=== PATIENT | male | born 1980 | race Native Hawaiian/Other Pacific Islander ===

== ENCOUNTER 2017-01-29 14:02 | Outpatient (CLI) | payer BC | END 2017-01-29 16:00 | disposition home or self-care (01) | LOC: LABW 14:02 | DX: K21.9 Gastro-esophageal reflux disease without esophagitis (principal) | CPT/HCPCS: 36415; 86677 ==

== ENCOUNTER 2020-07-17 09:41 | Outpatient (CLI) | payer OTHER | END 2020-07-17 21:31 | disposition home or self-care (01) | LOC: RAD 09:41 | PROVIDERS: ATTEND Nurse Practitioner Family | DX: M25.521 Pain in right elbow (principal) ==

== ENCOUNTER 2021-04-29 16:02 | Emergency (ER) | payer OTHER ==
[~2021-04-29] VITALS: Ht 190.5 cm; Wt 103.0 kg
[2021-04-29 16:06] VITALS: BP 139/83; TEMP 97.7
== END 2021-04-29 16:56 | disposition home or self-care (01) ==
LOC: ED 16:02
DX: T63.391A Toxic effect of venom of other spider, accidental (unintentional), initial encounter (principal); R20.2 Paresthesia of skin; X58.XXXA Exposure to other specified factors, initial encounter; Y92.098 Other place in other non-institutional residence as the place of occurrence of the external cause
CPT/HCPCS: 96372; 99283; J0696; J1100

== ENCOUNTER 2021-05-28 16:55 | Outpatient (CLI) | payer OTHER | END 2021-05-28 19:17 | disposition home or self-care (01) | LOC: RAD 16:55 | PROVIDERS: ATTEND Nurse Practitioner Family | DX: M25.561 Pain in right knee (principal) ==